=== PATIENT | female | born 1960 | race Caucasian/White ===

== ENCOUNTER 2017-12-12 08:23 | Outpatient (CLI) | payer OTHER | END 2017-12-12 08:24 | disposition home or self-care (01) | LOC: BICMAMMO 08:23 | PROVIDERS: ATTEND Nurse Practitioner Family | DX: Z12.31 Encounter for screening mammogram for malignant neoplasm of breast (principal); Z13.820 Encounter for screening for osteoporosis; Z98.82 Breast implant status | CPT/HCPCS: 77063; 77067; 77080 ==

== ENCOUNTER 2019-09-12 09:01 | Outpatient (CLI) | payer OTHER ==
--- NOTE | 2019-09-12 09:42 | CT ---
EXAM: CT chest without contrast per low-dose cancer screening protocol HISTORY: History of smoking and nicotine dependence COMPARISON: None TECHNIQUE: Multiple contiguous axial images were obtained in a CT of the chest without contrast per l ow-dose cancer screening protocol. Sagittal and coronal reformats were performed. FINDINGS: Pulmonary nodules: Calcified granuloma in the right upper lobe. No suspicious pulmonary nodules are s een. No focal infiltrates are seen. Pleural space: No pneumothorax or pleural effusion are seen. Heart: The heart is normal in size. Mediastinum: No hilar or mediastinal lymphadenopathy appreciated on this limited noncontrast examinat ion. There are calcified right hilar and mediastinal lymph nodes. Bones: Degenerative changes in the spine. The patient has bilateral breast implants. Visualized subdiaphragmatic structures: Unremarkable. IMPRESSION: Lung RADS category 1-negative.
== END 2019-09-12 09:02 | disposition home or self-care (01) ==
LOC: CT 09:01
PROVIDERS: ATTEND Family Medicine Sports Medicine
DX: Z12.2 Encounter for screening for malignant neoplasm of respiratory organs (principal); Z87.891 Personal history of nicotine dependence
CPT/HCPCS: G0297

== ENCOUNTER 2020-11-20 14:27 | Outpatient (CLI) | payer BC | END 2020-11-20 14:28 | disposition home or self-care (01) | LOC: BICCT 14:27 | PROVIDERS: ATTEND Family Medicine Sports Medicine | DX: Z12.2 Encounter for screening for malignant neoplasm of respiratory organs (principal); F17.210 Nicotine dependence, cigarettes, uncomplicated | CPT/HCPCS: 71271 ==

== ENCOUNTER 2020-12-04 10:36 | Outpatient (CLI) | payer BC | END 2020-12-04 10:37 | disposition home or self-care (01) | LOC: BICMAMMO 10:36 | PROVIDERS: ATTEND Family Medicine Sports Medicine | DX: Z12.31 Encounter for screening mammogram for malignant neoplasm of breast (principal) | CPT/HCPCS: 77063; 77067 ==

== ENCOUNTER 2021-11-25 13:41 | Outpatient (CLI) | payer BC | END 2021-11-25 13:42 | disposition home or self-care (01) | LOC: BICCT 13:41 | PROVIDERS: ATTEND Family Medicine Sports Medicine | DX: Z12.2 Encounter for screening for malignant neoplasm of respiratory organs (principal); Z87.891 Personal history of nicotine dependence | CPT/HCPCS: 71271 ==

== ENCOUNTER 2023-03-07 15:22 | Outpatient (CLI) | payer BC | END 2023-03-07 15:23 | disposition home or self-care (01) | LOC: BICCT 15:22 | PROVIDERS: ATTEND Family Medicine Sports Medicine | DX: Z12.2 Encounter for screening for malignant neoplasm of respiratory organs (principal); J84.10 Pulmonary fibrosis, unspecified; R91.1 Solitary pulmonary nodule; K75.3 Granulomatous hepatitis, not elsewhere classified; N64.89 Other specified disorders of breast; R59.0 Localized enlarged lymph nodes; Z87.891 Personal history of nicotine dependence | CPT/HCPCS: 71271 ==

== ENCOUNTER 2023-04-18 14:06 | Outpatient (CLI) | payer BC | END 2023-04-18 14:07 | disposition home or self-care (01) | LOC: BICMAMMO 14:06 | PROVIDERS: ATTEND Family Medicine Sports Medicine | DX: Z12.31 Encounter for screening mammogram for malignant neoplasm of breast (principal); Z98.82 Breast implant status | CPT/HCPCS: 77063; 77067 ==

== ENCOUNTER 2024-07-10 14:56 | Outpatient (CLI) | payer BC | END 2024-07-10 14:57 | disposition home or self-care (01) | LOC: BICCT 14:56 | PROVIDERS: ATTEND Family Medicine Sports Medicine | DX: Z12.2 Encounter for screening for malignant neoplasm of respiratory organs (principal); Z87.891 Personal history of nicotine dependence | CPT/HCPCS: 71271 ==